=== PATIENT | male | born 1960 ===

== ENCOUNTER → 2019-04-04 | Outpatient (CLI) | payer BC ==
--- NOTE | 2019-04-04 16:32 | PCVCIMAG ---
APPROVED REPORT Study performed: 04/04/2019 15:04:02 Exam: Stress Echocardiogram Indication: Hyperlipidemia, chest pain Patient Location: Echo lab Stress Nurse: Ramonita Yeager RN Status: routine Ht: 6 ft 3 in HR: 76 bpm BP: 104/70 mmHg Rhythm: NSR Medical History Medical History: Hyperlipidemia Procedure The patient underwent an Exercise Stress Test using the Flo Protocol. Blood pressure, heart rate, and EKG were monitored. An Echocardiogram was performed by health and safety technician in four stages in quad fashion. At peak stress, four selected images were obtained and placed side by side with resting images for comparison. Stress Test Details Stress Test: Exercise stress testing was performed using a Flo protocol. HR Resting HR: 76 bpmMax Heart Rate (APMHR): 161 bpm Max HR Achieved: 150 bpmTarget HR (85% APMHR): 136 bpm % of APMHR: 93 Recovery HR: 95 bpm HR response to stress: Normal HR response to stress BP Resting BP: 104/70 mmHg Max BP: 150/ mmHg Recovery BP: 138/80 mmHg BP response to stress: Normal blood pressure response to stress. ECG Resting ECG: Sinus Rhythm Stress ECG: Sinus Rhythm, ST depression ST Change: positive ST depression Maximum ST Deviation: 2.20 mm Recovery ECG: Sinus Rhythm, ST depression Recovery ST Change: Sinus Rhtyhm, ST dpression Clinical Reason for Termination: Maximal effort Stress Symptoms: Chest pain Exercise duration: 7 min 17 sec Highest Stage Achieved: Stage 3: 3.4 mph at 14% grade. Exercise capacity: 10.40 METs Overall Exercise Capacity for Age: Normal Pre-Stress Echo The resting Echocardiogram showed normal left ventricular contractility with an estimated Ejection Fraction of about >55%. Post-Stress Echo The stress Echocardiogram showed abnormal left ventricular contractility with an estimated Ejection Fraction of about 40-45%. There is hypokinesis of the mid to apical anteroseptum and apex Conclusion Clinical Response: Ischemic Exercise Capacity: Average Stress ECG Response: Ischemic Stress Echo Images: Ischemic Other Information Study Quality: Good
== END | disposition home or self-care (01) ==
LOC: PCVCIMAG 14:40
PROVIDERS: ATTEND Internal Medicine Cardiovascular Disease
DX: R07.9 Chest pain, unspecified (principal); E78.5 Hyperlipidemia, unspecified
CPT/HCPCS: 93325; 93351